=== PATIENT | female | born 1990 | race Caucasian/White ===

== ENCOUNTER 2021-08-29 18:50 | Emergency (ER) | payer BC, SELFPAY ==
--- NOTE | ~2021-08-29 | CT_ITS ---
EXAMINATION: CT brain & sinus wo con DATE: 08/29/2021 20:20 INDICATION: Recurrent sinusitis TECHNIQUE: Computed tomography (CT) of the head was performed without intravenous contrast. The mA wa s adjusted according to patient size. Iterative reconstruction technique was employed. The dose-lengt h product was 908.00 mGy-cm. COMPARISON: None FINDINGS: Brain: No acute intracranial hemorrhage or extra-axial fluid collection. No hydrocephalus, mass, or herniation. No acute ischemic infarct. Unremarkable dural venous sinus attenuation. No acute osseous abnormality. Sinus: Trace opacification of a tiny posterior ethmoid air cell. Trace mucosal thickening in the right sphen oid. Small left inferior maxillary retention cyst or polyp. No significant nasal septal deviation. Th e bilateral ostiomeatal units are patent. IMPRESSION: No acute intracranial process. No CT evidence of acute or chronic sinusitis. Reviewed, dictated and finalized at location K.
[2021-08-29 18:58] VITALS: BP 125/102; PULSE 78; RESP 18; TEMP 36.1; O2SAT 98
--- NOTE | 2021-08-29 19:32 | ED.URI ---
HPI - URI/Sore Throat General Chief Complaint: Upper Respiratory Infection Stated Complaint: Sinus Infection, Nose Swelling Time Seen by Provider: 08/29/21 18:55 History of Present Illness HPI Narrative: 30-year-old female presents the emergency room with complaints of frontal and maxillary sinus pressure/pain. 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 Patient reports that she is frequently treated with Bactrim successfully. Patient states that she was seen at an outside urgent care 2 days ago, and was given a course of Bactrim and mupirocin nasal ointment. Patient states his symptoms have worsened. Patient is complaining of sinus congestion, headache, and dizziness. Related Data Allergies Allergy/AdvReac Type Severity Reaction Status Date / Time No Known Allergies Allergy Verified 08/29/21 20:14 Review of Systems Review of Systems: CONSTITUTIONAL: Denies fever, chills, or sweats. EYES: Denies visual changes, redness, or discharge. ENT: Reports sinus congestion and facial pain CARDIOVASCULAR: Denies chest pain, palpitations, or edema. RESPIRATORY: Denies cough or dyspnea. GASTROINTESTINAL: Denies abdominal pain, nausea, vomiting, or diarrhea. GENITOURINARY: Denies dysuria or hematuria. SKIN: Denies rash or itching. MUSCULOSKELETAL: Denies back pain, joint pain, or myalgia. NEUROLOGIC: Denies headache, numbness, dizziness, or weakness. PSYCHIATRIC: Denies anxiety or depression. Exam Narrative: GENERAL: Well-appearing, well-nourished, and in no acute distress. HEAD: Normocephalic, atraumatic. EYES: PERRLA and EOMI. ENT: Sinus congestion, tenderness over the frontal, ethmoid, and maxillary sinuses NECK: Supple. No adenopathy or masses. No carotid bruits or JVD CHEST: Clear to auscultation. No respiratory distress. No wheezes rales or rhonchi HEART: Regular rate and rhythm. No murmur heard. Normal peripheral pulses. EXTREMITIES: Normal range of motion. No edema. SKIN: Warm, dry, no rash. NEURO: No focal deficits. Alert and oriented x3. PSYCH: Normal mood and affect. Course Vital Signs Vital signs: Vital Signs Temperature 36.1 C L 08/29/21 18:58 Pulse Rate 78 08/29/21 18:58 Respiratory Rate 18 08/29/21 18:58 Blood Pressure 125/102 H 08/29/21 18:58 Pulse Oximetry 98 08/29/21 18:58 Temperature 36.1 C L 08/29/21 18:58 Pulse Rate 78 08/29/21 18:58 Respiratory Rate 18 08/29/21 18:58 Blood Pressure 125/102 H 08/29/21 18:58 Pulse Oximetry 98 08/29/21 18:58 MDM - URI/Sore Throat MDM Narrative Medical decision making narrative: 30-year-old female presents emergency room with complaints of pain. Patient states she has a history of chronic sinus infections, she usually takes. Patient was seen at outside urgent care 2 days ago, and was placed on Bactrim and mupirocin ointment for MRSA colonizer. Patient states her symptoms have not improved since starting the antibiotics. Obtained a CT of the sinuses showed no acute or chronic sinusitis. Will have patient discontinue taking the Bactrim and replaced with doxycycline. Imaging Data Radiologist's impression: Impressions Head/Sinuses CT 08/29/21 20:35 IMPRESSION: No acute intracranial process. No CT evidence of acute or chronic sinusitis. Discharge Plan Discharge Clinical Impression: Sinusitis Patient Disposition: Home, Self-Care Condition: Stable Instructions: Antibiotic Form, Sinusitis (ED) Prescriptions: New doxycycline monohydrate 100 mg tablet 100 mg PO BID Qty: 14 RF: 0 celecoxib [Celebrex] 200 mg capsule 200 mg PO BID Qty: 20 RF: 0 Follow-up/Referrals: Alyx Treviño [Other] Kain Lemos MD [Physician] - Time of Disposition: 20:51
[2021-08-29] MEDS: KETOROLAC (*BKC) 60 MG/2 ML VIAL IM (20:18)
== END 2021-08-29 21:12 | disposition home or self-care (01) ==
PROVIDERS: Emergency Provider Nurse Practitioner Family
DX: J32.9 Chronic sinusitis, unspecified (principal)
CPT/HCPCS: 70450; 70486; 96372; 99284; J1885

== ENCOUNTER 2022-07-15 14:00 | Emergency (ER) | payer BC, SELFPAY ==
[2022-07-15 14:13] VITALS: BP 123/63; PULSE 73; RESP 18; TEMP 36.4; O2SAT 99
--- NOTE | 2022-07-15 14:14 | ED.URI ---
HPI - URI/Sore Throat General Chief Complaint: Upper Respiratory Infection Stated Complaint: Cough,Headache,Congestion,Fatigue Time Seen by Provider: 07/15/22 14:26 Source: patient and RN notes reviewed Mode of arrival: ambulatory Limitations: no limitations History of Present Illness HPI Narrative: 31-year-old female presents with concern for 10 day history of sinus congestion, pressure, ear pressure and pain, cough. Reports cough keeps her awake at night. She reports she has been taking DayQuil and NyQuil with little relief. She reports ongoing fevers. She denies shortness of breath. MD elicited complaint: cough, nasal congestion and sinus pain Related Data Home Medications Medication Instructions Recorded Confirmed dextroamphetamine-amphetamine ER 15 mg PO BID 07/15/22 07/15/22 15 mg 24hr capsule,extend release escitalopram oxalate 20 mg tablet 20 mg PO DAILY 07/15/22 07/15/22 Allergies Allergy/AdvReac Type Severity Reaction Status Date / Time amoxicillin AdvReac Intermediate Gastrointestinal Verified 07/15/22 14:20 Upset Review of Systems Review of Systems: CONSTITUTIONAL: Reports malaise, fatigue, fever. EYES: Denies visual changes, redness, or discharge. ENT: Reports rhinorrhea, congestion, sinus pain, otalgia. Denies sore throat. CARDIOVASCULAR: Denies chest pain, palpitations, or edema. RESPIRATORY: Reports cough. Denies dyspnea. GASTROINTESTINAL: Denies abdominal pain, nausea, vomiting, diarrhea SKIN: Denies rash or itching. MUSCULOSKELETAL: Denies myalgia. NEUROLOGIC: Reports headache. All systems reviewed & are unremarkable except as noted in HPI and below [facility] Comments At time of signature, agree with nursing past medical, surgical, social and family history. There is no relevant family history pertinent to the presenting complaint Exam Narrative: GENERAL: Nontoxic appearing and in no acute distress. HEAD: Normocephalic EYES: PERRLA, conjunctivae clear ENT: Nares clear, turbinates edematous and erythematous, sinus tenderness. Mucous membranes moist. TM pearly aguila with dull light reflex bilaterally; no tragal tenderness. Oropharynx not erythematous without lesions. Tonsils not enlarged and without exudate, no drooling, no hoarseness, no trismus, uvula midline. NECK: Supple. No lymphadenopathy CHEST: Clear to auscultation, breath sounds equal. No wheezing, rhonchi, rales, or stridor. No respiratory distress, speaks in full sentences. Cough noted HEART: Regular rate and rhythm. No murmur heard. SKIN: Warm, dry, no rash. NEURO: Alert and oriented x3. PSYCH: Normal mood and affect Course Course Emergency Course: Patient is aware of diagnosis, understands and agrees to treatment plan. Anticipatory guidance given. Patient agrees to follow-up as directed and is aware of reasons to seek care at the emergency department. Portions of this record may have been created with voice recognition software Level of Care: Express Care Visit Vital Signs Vital signs: Reviewed. MDM - URI/Sore Throat MDM Narrative Medical decision making narrative: Differential diagnosis considered: Guerrero virus, strep pharyngitis, allergic rhinitis, upper respiratory tract infection, sinusitis, rhinosinusitis, nasopharyngitis. viral pharyngitis, otitis media, otitis externa, pneumonia, bronchitis, viral cough syndrome, viral syndrome, and influenza. Exam findings show no acute concerns or changes; patient is non-toxic appearing and is in no distress. Patient is appropriate for outpatient treatment and follow-up. Lab Data Attestation: I reviewed the patient's lab results. Critical Care Time Critical Care Time Critical Care Time: No Discharge Plan Discharge Clinical Impression: Sinobronchitis Patient Disposition: Home, Self-Care Condition: Stable Instructions: Antibiotic Form, Sinusitis (ED), Acute Bronchitis (ED) Additional Instructions: Take medications as directed Recommend antihistamine such a
== END 2022-07-15 14:38 | disposition home or self-care (01) ==
PROVIDERS: Emergency Provider Nurse Practitioner
DX: J40 Bronchitis, not specified as acute or chronic (principal)
CPT/HCPCS: 99213; G0463